=== PATIENT | female | born 1945 | race Caucasian/White ===

== ENCOUNTER 2020-03-25 14:26 | Inpatient (IN) ==
[2020-03-25] MEDS ORDERED: SODIUM CHLORIDE 0.9% 1,000 ML IV STA (14:51)
[2020-03-25] MEDS ORDERED: ONDANSETRON 4 MG/2 ML VIAL IV PRN (14:51)
[2020-03-25 15:47] LABS: Basophils # 0.1 10*3/uL (0.0-0.2); Basophils % 0.2 % (0.0-0.8); Eosinophils # 0.3 10*3/uL (0.0-0.87); Eosinophils % 1.1 % (0.00-10.9); Hematocrit 33.9 VOL% (35.7-47.0); Hemoglobin 10.5 GM/DL (12.0-16.0); Immature Granulocytes % 1.3 %; Immature Granulocytes Absolute 0.39 #; Lymphocytes # 0.9 10*3/uL (1.4-4.0); Lymphocytes % 2.9 % (21.3-54.2); Mean Corpuscular Volume 87.1 FL (87-102); Mean Platelet Volume 9.6 FL (9.6-12.0); Monocytes % 6.5 % (1.7-12.7); Platelet Count 487 T/CUMM (130-400); Red Blood Count 3.89 MC/CUMM (3.8-5.5); Red Cell Distribution Width 15.8 % (9.3-17.3); White Blood Count 29.6 T/CUMM (4-12)
[2020-03-25 16:07] LABS: % Iron Saturation 10.9 % (18-50); Albumin 2.1 G/DL (3.4-5.0); Bilirubin,Total 0.4 MG/DL (0.2-1.0); Calcium 9.5 MG/DL (8.5-10.1); Ferritin 528.3 ng/ml (8-252); Osmolality,Calculated 274.1 MOS/KG (273-304); Total Protein 5.7 G/DL (6.4-8.3)
[2020-03-25 16:08] LABS: Apearance,Urine Slightly Hazy (Clear); Bilirubin,Urine Negative (Negative); Blood, Urine Negative (Negative); Glucose,Urine (UA) Negative (Negative); Ketones,Urine Negative (Negative); Mucus,Urine Occasional /LPF (Occasional); Nitrite,Urine Negative (Negative); Protein,Urine Negative; RBC,Urine 4 /HPF (0-4); Squamous Epithelial Cell,Urine Few /HPF (0-10); Urine Color Yellow (Yellow); Urine Specific Gravity 1.044 (1.001-1.035); Urine Urobilinogen < 2.0 EU/DL (0.2-1.0); WBC,Urine 4 /HPF (0-6)
[2020-03-25 16:12] LABS: Lymphocytes 5 % (20-55); Segmented Neutrophils 92 % (50-85); Total Cells Counted 100
[2020-03-25 16:13] LABS: Burr Cells Slight; Platelet Estimate Increased; Poikilocytosis Slight
[2020-03-25] MEDS ORDERED: DEXTROSE 50% 25 GM/50 ML VIAL IV PRN (17:12)
[2020-03-25] MEDS ORDERED: GLUCAGON 1 MG VIAL IM PRN (17:12)
[2020-03-25] MEDS: INSULIN LISPRO 100 UNIT/ML SUBCUT SCH (21:02)
[2020-03-26 05:15] LABS: Basophils # 0.1 10*3/uL (0.0-0.2); Basophils % 0.3 % (0.0-0.8); Eosinophils # 0.7 10*3/uL (0.0-0.87); Eosinophils % 2.6 % (0.00-10.9); Hematocrit 29.7 VOL% (35.7-47.0); Hemoglobin 9.2 GM/DL (12.0-16.0); Immature Granulocytes % 1.2 %; Immature Granulocytes Absolute 0.33 #; Lymphocytes # 1.3 10*3/uL (1.4-4.0); Mean Corpuscular Volume 86.6 FL (87-102); Mean Platelet Volume 9.9 FL (9.6-12.0); Monocytes % 7.8 % (1.7-12.7); Neutrophils % 83.1 % (38.7-73.9); Platelet Count 463 T/CUMM (130-400); Red Blood Count 3.43 MC/CUMM (3.8-5.5); Red Cell Distribution Width 15.8 % (9.3-17.3); White Blood Count 26.8 T/CUMM (4-12)
[2020-03-26 05:36] LABS: Band Neutrophils 2 % (0-10); Eosinophils 2 % (0-10); Hypochromasia 1+; Lymphocytes 7 % (20-55); Segmented Neutrophils 86 % (50-85); Total Cells Counted 100
[2020-03-26 05:37] LABS: Microcytosis 1+; Ovalocytes Slight; Platelet Estimate Increased
[2020-03-26 05:55] LABS: Albumin 1.8 G/DL (3.4-5.0); Bilirubin,Total 0.4 MG/DL (0.2-1.0); Calcium 8.7 MG/DL (8.5-10.1); Osmolality,Calculated 278.4 MOS/KG (273-304); Total Protein 4.7 G/DL (6.4-8.3)
[2020-03-26 06:37] LABS: Risk Ratio 3.15; VLDL CHOLESTEROL 20.8 MG/DL
[2020-03-26 07:07] LABS: Cancer Antigen 19-9 43.5 U/ML (0-37); Carcinoembryonic Antigen 1.2 NG/ML (0.0-5.0)
[2020-03-26] MEDS: INSULIN LISPRO 100 UNIT/ML SUBCUT SCH ×4 (08:07→21:03)
[2020-03-26] MEDS: amLODIPine 10 MG TABLET PO SCH (10:38)
[2020-03-26] MEDS: lisinopriL 20 MG TABLET PO SCH (10:38)
[2020-03-26] MEDS: METOPROLOL SUCCINATE XL 25 MG TABLET PO SCH (10:38)
[2020-03-26] MEDS: IRON SUCROSE 200 MG in SODIUM CHLORIDE 0.9% 100 ML IV SCH (11:06)
[2020-03-26] MEDS: SIMVASTATIN 10 MG TABLET PO SCH (21:03)
[2020-03-27 05:16] LABS: Basophils # 0.1 10*3/uL (0.0-0.2); Basophils % 0.2 % (0.0-0.8); Eosinophils # 0.7 10*3/uL (0.0-0.87); Eosinophils % 2.6 % (0.00-10.9); Hematocrit 30.7 VOL% (35.7-47.0); Hemoglobin 9.5 GM/DL (12.0-16.0); Immature Granulocytes % 1.3 %; Immature Granulocytes Absolute 0.37 #; Lymphocytes # 1.4 10*3/uL (1.4-4.0); Lymphocytes % 4.8 % (21.3-54.2); Mean Corpuscular HGB Conc 30.9 GM/DL (32-36); Mean Platelet Volume 10.1 FL (9.6-12.0); Monocytes % 7.4 % (1.7-12.7); Neutrophils % 83.7 % (38.7-73.9); Platelet Count 454 T/CUMM (130-400); Red Blood Count 3.49 MC/CUMM (3.8-5.5); Red Cell Distribution Width 15.9 % (9.3-17.3); White Blood Count 28.1 T/CUMM (4-12)
[2020-03-27 05:37] LABS: Albumin 1.7 G/DL (3.4-5.0); Bilirubin,Total 0.7 MG/DL (0.2-1.0); Calcium 8.9 MG/DL (8.5-10.1); Osmolality,Calculated 278.4 MOS/KG (273-304); Total Protein 4.7 G/DL (6.4-8.3)
[2020-03-27 06:11] LABS: Band Neutrophils 3 % (0-10); Eosinophils 2 % (0-10); Lymphocytes 5 % (20-55); Segmented Neutrophils 86 % (50-85); Total Cells Counted 100
[2020-03-27 06:12] LABS: Hypochromasia 1+; Microcytosis 1+; Ovalocytes Slight; Platelet Estimate Increased
[2020-03-27] MEDS ORDERED: MAGNESIUM SULF RIDER 2 GM in PREMIX 1 EACH IV PRN (07:02)
[2020-03-27] MEDS ORDERED: MAGNESIUM SULF RIDER 4 GM in PREMIX 1 EACH IV PRN (07:02)
[2020-03-27] MEDS: INSULIN LISPRO 100 UNIT/ML SUBCUT SCH ×4 (08:16→21:00)
[2020-03-27] MEDS: METOPROLOL SUCCINATE XL 25 MG TABLET PO SCH (09:30)
[2020-03-27] MEDS: amLODIPine 10 MG TABLET PO SCH (09:30)
[2020-03-27] MEDS: lisinopriL 20 MG TABLET PO SCH (09:30)
[2020-03-27] MEDS: IRON SUCROSE 200 MG in SODIUM CHLORIDE 0.9% 100 ML IV SCH (11:42)
[2020-03-27 13:36] LABS: Cancer Antigen 19-9 43.4 U/ML (0-37); Carcinoembryonic Antigen 1.1 NG/ML (0.0-5.0)
[2020-03-27 14:02] LABS: INR 1.3; PT Patient Result 13.5 SECS (9.8-11.9)
[2020-03-27] MEDS: SIMVASTATIN 10 MG TABLET PO SCH (21:00)
[2020-03-28 07:47] LABS: Basophils # 0.1 10*3/uL (0.0-0.2); Basophils % 0.3 % (0.0-0.8); Eosinophils # 0.8 10*3/uL (0.0-0.87); Eosinophils % 2.6 % (0.00-10.9); Hematocrit 30.1 VOL% (35.7-47.0); Hemoglobin 9.5 GM/DL (12.0-16.0); Immature Granulocytes % 1.5 %; Immature Granulocytes Absolute 0.45 #; Lymphocytes # 1.3 10*3/uL (1.4-4.0); Lymphocytes % 4.3 % (21.3-54.2); Mean Corpuscular HGB Conc 31.6 GM/DL (32-36); Mean Platelet Volume 9.7 FL (9.6-12.0); Monocytes % 7.6 % (1.7-12.7); Neutrophils % 83.7 % (38.7-73.9); Platelet Count 408 T/CUMM (130-400); Red Blood Count 3.46 MC/CUMM (3.8-5.5); Red Cell Distribution Width 15.9 % (9.3-17.3); White Blood Count 29.7 T/CUMM (4-12)
[2020-03-28 08:19] LABS: Calcium 8.6 MG/DL (8.5-10.1)
[2020-03-28] MEDS: INSULIN LISPRO 100 UNIT/ML SUBCUT SCH ×4 (08:20→21:21)
[2020-03-28 08:54] LABS: Anisocytosis 1+; Band Neutrophils 3 % (0-10); Eosinophils 2 % (0-10); Hypochromasia 2+; Lymphocytes 1 % (20-55); Macrocytosis 1+; Ovalocytes 1+; Platelet Estimate Increased; Segmented Neutrophils 88 % (50-85); Total Cells Counted 100
[2020-03-28] MEDS: IRON SUCROSE 200 MG in SODIUM CHLORIDE 0.9% 100 ML IV SCH (09:48)
[2020-03-28] MEDS: SIMVASTATIN 10 MG TABLET PO SCH (21:21)
[2020-03-28] MEDS: ACETAMINOPHEN 325 MG TABLET PO PRN (21:21)
[2020-03-29 05:33] LABS: Basophils # 0.1 10*3/uL (0.0-0.2); Basophils % 0.3 % (0.0-0.8); Eosinophils # 0.8 10*3/uL (0.0-0.87); Eosinophils % 2.3 % (0.00-10.9); Hematocrit 29.8 VOL% (35.7-47.0); Hemoglobin 9.1 GM/DL (12.0-16.0); Immature Granulocytes % 1.8 %; Immature Granulocytes Absolute 0.62 #; Lymphocytes # 1.5 10*3/uL (1.4-4.0); Lymphocytes % 4.6 % (21.3-54.2); Mean Corpuscular HGB Conc 30.5 GM/DL (32-36); Mean Corpuscular Volume 88.4 FL (87-102); Mean Platelet Volume 9.7 FL (9.6-12.0); Monocytes % 6.9 % (1.7-12.7); Neutrophils % 84.1 % (38.7-73.9); Platelet Count 398 T/CUMM (130-400); Red Blood Count 3.37 MC/CUMM (3.8-5.5); Red Cell Distribution Width 15.7 % (9.3-17.3); White Blood Count 33.6 T/CUMM (4-12)
[2020-03-29 05:45] LABS: Calcium 8.7 MG/DL (8.5-10.1)
[2020-03-29 06:10] LABS: Band Neutrophils 2 % (0-10); Eosinophils 1 % (0-10); Hypochromasia Slight; Lymphocytes 6 % (20-55); Platelet Estimate Normal; Segmented Neutrophils 87 % (50-85); Total Cells Counted 100
[2020-03-29] MEDS ORDERED: POTASSIUM CHLORIDE 20 MEQ TABLET PO ONE (07:40)
[2020-03-29] MEDS: IRON SUCROSE 200 MG in SODIUM CHLORIDE 0.9% 100 ML IV SCH (09:17)
[2020-03-29] MEDS: INSULIN LISPRO 100 UNIT/ML SUBCUT SCH ×4 (09:18→20:51)
[2020-03-29] MEDS: SIMVASTATIN 10 MG TABLET PO SCH (20:52)
[2020-03-29] MEDS: ACETAMINOPHEN 325 MG TABLET PO PRN (20:52)
[2020-03-30 06:26] LABS: Basophils # 0.1 10*3/uL (0.0-0.2); Basophils % 0.2 % (0.0-0.8); Eosinophils # 0.6 10*3/uL (0.0-0.87); Eosinophils % 1.8 % (0.00-10.9); Hematocrit 29.7 VOL% (35.7-47.0); Hemoglobin 9.3 GM/DL (12.0-16.0); Immature Granulocytes % 2.1 %; Immature Granulocytes Absolute 0.72 #; Lymphocytes # 1.6 10*3/uL (1.4-4.0); Lymphocytes % 4.7 % (21.3-54.2); Mean Corpuscular HGB Conc 31.3 GM/DL (32-36); Mean Corpuscular Volume 86.6 FL (87-102); Monocytes % 6.3 % (1.7-12.7); Neutrophils % 84.9 % (38.7-73.9); Platelet Count 397 T/CUMM (130-400); Red Blood Count 3.43 MC/CUMM (3.8-5.5); Red Cell Distribution Width 15.9 % (9.3-17.3); White Blood Count 33.6 T/CUMM (4-12)
[2020-03-30 06:40] LABS: Calcium 8.4 MG/DL (8.5-10.1); Osmolality,Calculated 281.1 MOS/KG (273-304)
[2020-03-30 08:33] LABS: Anisocytosis 1+; Band Neutrophils 29 % (0-10); Eosinophils 3 % (0-10); Lymphocytes 4 % (20-55); Metamyelocytes 1 %; Platelet Estimate Normal; Segmented Neutrophils 59 % (50-85); Smudge Cells 1+; Total Cells Counted 100
[2020-03-30] MEDS: INSULIN LISPRO 100 UNIT/ML SUBCUT SCH ×4 (09:03→23:44)
[2020-03-30] MEDS: IRON SUCROSE 200 MG in SODIUM CHLORIDE 0.9% 100 ML IV SCH (09:09)
[2020-03-30] MEDS: SIMVASTATIN 10 MG TABLET PO SCH (21:27)
[2020-03-31 06:04] LABS: Basophils # 0.1 10*3/uL (0.0-0.2); Basophils % 0.3 % (0.0-0.8); Eosinophils # 0.7 10*3/uL (0.0-0.87); Hematocrit 28.5 VOL% (35.7-47.0); Hemoglobin 8.9 GM/DL (12.0-16.0); Immature Granulocytes % 1.5 %; Immature Granulocytes Absolute 0.48 #; Lymphocytes # 1.5 10*3/uL (1.4-4.0); Lymphocytes % 4.6 % (21.3-54.2); Mean Corpuscular HGB Conc 31.2 GM/DL (32-36); Mean Corpuscular Volume 86.9 FL (87-102); Mean Platelet Volume 10.4 FL (9.6-12.0); Monocytes % 6.9 % (1.7-12.7); Neutrophils % 84.7 % (38.7-73.9); Platelet Count 425 T/CUMM (130-400); Red Blood Count 3.28 MC/CUMM (3.8-5.5); Red Cell Distribution Width 15.9 % (9.3-17.3)
[2020-03-31 06:27] LABS: Band Neutrophils 6 % (0-10); Eosinophils 2 % (0-10); Hypochromasia 1+; Lymphocytes 3 % (20-55); Segmented Neutrophils 82 % (50-85); Total Cells Counted 100
[2020-03-31 06:28] LABS: Anisocytosis 1+; Ovalocytes Slight; Platelet Estimate Increased
[2020-03-31 06:50] LABS: Calcium 8.6 MG/DL (8.5-10.1); Osmolality,Calculated 275.4 MOS/KG (273-304)
[2020-03-31] MEDS: INSULIN LISPRO 100 UNIT/ML SUBCUT SCH ×4 (07:17→20:37)
[2020-03-31] MEDS ORDERED: SODIUM CHLORIDE 0.45% 1,000 ML IV SCH (12:30)
[2020-03-31] MEDS: SIMVASTATIN 10 MG TABLET PO SCH (20:38)
[2020-04-01 03:10] LABS: Basophils # 0.1 10*3/uL (0.0-0.2); Basophils % 0.2 % (0.0-0.8); Eosinophils # 0.7 10*3/uL (0.0-0.87); Eosinophils % 2.1 % (0.00-10.9); Hematocrit 29.6 VOL% (35.7-47.0); Hemoglobin 9.6 GM/DL (12.0-16.0); Immature Granulocytes % 1.3 %; Immature Granulocytes Absolute 0.45 #; Lymphocytes # 1.6 10*3/uL (1.4-4.0); Lymphocytes % 4.6 % (21.3-54.2); Mean Corpuscular HGB Conc 32.4 GM/DL (32-36); Mean Corpuscular Volume 85.8 FL (87-102); Mean Platelet Volume 9.7 FL (9.6-12.0); Monocytes % 5.9 % (1.7-12.7); Neutrophils % 85.9 % (38.7-73.9); Platelet Count 420 T/CUMM (130-400); Red Blood Count 3.45 MC/CUMM (3.8-5.5); White Blood Count 34.1 T/CUMM (4-12)
[2020-04-01 03:24] LABS: Calcium 8.8 MG/DL (8.5-10.1); Osmolality,Calculated 273.7 MOS/KG (273-304)
[2020-04-01 04:45] LABS: Band Neutrophils 3 % (0-10); Eosinophils 1 % (0-10); Hypochromasia 1+; Lymphocytes 3 % (20-55); Segmented Neutrophils 88 % (50-85); Total Cells Counted 100
[2020-04-01 04:46] LABS: Anisocytosis 1+; Platelet Estimate Increased
[2020-04-01] MEDS: INSULIN LISPRO 100 UNIT/ML SUBCUT SCH ×2 (08:29→11:23)
[2020-04-01 11:34] VITALS: BP 116/66
== END 2020-04-01 12:25 | disposition home health service (06) | DRG 436 ==
LOC: N.ED 14:26 → N.EDINP 14:26 → SUATTDRO 17:10 → N.2E 17:49 → N.3E 03-26 18:39
PROVIDERS: ADMIT Internal Medicine; ATTEND Hospitalist

== ENCOUNTER 2020-04-04 17:17 | Inpatient (IN) ==
[2020-04-04] MEDS ORDERED: ACETAMINOPHEN 500 MG TABLET PO STA (17:57)
[2020-04-04 19:04] LABS: Basophils # 0.1 10*3/uL (0.0-0.2); Basophils % 0.2 % (0.0-0.8); Eosinophils # 0.5 10*3/uL (0.0-0.87); Eosinophils % 1.2 % (0.00-10.9); Hematocrit 33.2 VOL% (35.7-47.0); Hemoglobin 10.1 GM/DL (12.0-16.0); Immature Granulocytes % 1.9 %; Immature Granulocytes Absolute 0.79 #; Lymphocytes % 2.5 % (21.3-54.2); Mean Corpuscular HGB Conc 30.4 GM/DL (32-36); Mean Corpuscular Volume 88.8 FL (87-102); Mean Platelet Volume 10.1 FL (9.6-12.0); Monocytes % 6.3 % (1.7-12.7); Neutrophils % 87.9 % (38.7-73.9); Platelet Count 579 T/CUMM (130-400); Red Blood Count 3.74 MC/CUMM (3.8-5.5); Red Cell Distribution Width 16.6 % (9.3-17.3)
[2020-04-04 19:06] LABS: White Blood Count 41.7 T/CUMM (4-12)
[2020-04-04 19:12] LABS: INR 1.2; PT Patient Result 12.4 SECS (9.8-11.9)
[2020-04-04 19:24] LABS: Anisocytosis 1+; Band Neutrophils 6 % (0-10); Eosinophils 2 % (0-10); Lymphocytes 3 % (20-55); Macrocytosis Slight; Microcytosis 1+; Platelet Estimate Increased; Polychromasia Slight; Segmented Neutrophils 87 % (50-85); Total Cells Counted 100
[2020-04-04 19:25] LABS: Alanine Aminotransferase 29 U/L (13-56); Alkaline Phosphatase 335 U/L (45-117); Aspartate Amino Transferase 15 U/L (0-37); Bilirubin,Total < 0.39 MG/DL (0.2-1.0); Blood Urea Nitrogen 22 MG/DL (7-18); Calcium 8.9 MG/DL (8.5-10.1); Estimated Glom Filtration Rate 66 ML/MIN; Ferritin 1215.3 ng/ml (8-252); Glucose 105 MG/DL (74-106); Osmolality,Calculated 270.2 MOS/KG (273-304); Total Protein 5.7 G/DL (6.4-8.3)
[2020-04-04] MEDS ORDERED: SODIUM CHLORIDE 0.9% 1,000 ML IV STA (19:30)
[2020-04-04 19:43] LABS: Apearance,Urine CLEAR (Clear); Bilirubin,Urine Negative (Negative); Blood, Urine Negative (Negative); Glucose,Urine (UA) Negative (Negative); Ketones,Urine Negative (Negative); Mucus,Urine Occasional /LPF (Occasional); Nitrite,Urine Negative (Negative); Protein,Urine 30 MG/DL; RBC,Urine <1 /HPF (0-4); Urine Color Yellow (Yellow); Urine Specific Gravity 1.017 (1.001-1.035); WBC,Urine 1 /HPF (0-6)
[2020-04-04] MEDS ORDERED: CEFEPIME 1,000 MG in SODIUM CHLORIDE 0.9% 100 ML IV STA (19:58)
[2020-04-04] MEDS ORDERED: IBUPROFEN 600 MG TABLET ONE (20:07)
[2020-04-04] MEDS ORDERED: VANCOMYCIN INJ 1,000 MG in SODIUM CHLORIDE 0.9% 250 ML IV STA (20:14)
[2020-04-04] MEDS ORDERED: ZALEPLON 5 MG CAPSULE PO PRN (20:43)
[2020-04-04] MEDS ORDERED: DEXTROSE 50% 25 GM/50 ML VIAL IV PRN ×2 (20:43)
[2020-04-04] MEDS ORDERED: MORPHINE 4 MG/1 ML VIAL IV PRN (20:43)
[2020-04-04] MEDS ORDERED: ACETAMINOPHEN 325 MG TABLET PO PRN (20:43)
[2020-04-04] MEDS ORDERED: GLUCAGON 1 MG VIAL IM PRN ×2 (20:43)
[2020-04-04] MEDS ORDERED: NICOTINE 21 MG/24 HR PATCH TRANSDERM PRN (20:43)
[2020-04-04] MEDS ORDERED: diphenhydrAMINE CAP 25 MG CAPSULE PO PRN (20:43)
[2020-04-04] MEDS ORDERED: ONDANSETRON 4 MG/2 ML VIAL IV PRN (20:43)
[2020-04-04] MEDS ORDERED: guaiFENesin/DM ER 600-30 MG TABLET PO PRN (20:43)
[2020-04-04] MEDS ORDERED: PROMETHAZINE 25 MG/1 ML VIAL IM PRN (20:43)
[2020-04-04] MEDS ORDERED: hydrALAZINE 20 MG/1 ML VIAL IV PRN (20:43)
[2020-04-04] MEDS ORDERED: SODIUM CHLORIDE 0.9% 500 ML IV ONE (20:50)
[2020-04-04] MEDS: DOCUSATE SODIUM 100 MG CAPSULE PO SCH (22:30)
[2020-04-04] MEDS: ENOXAPARIN 40 MG/0.4 ML SYRINGE SUBCUT SCH (22:30)
[2020-04-04] MEDS: SODIUM CHLORIDE 0.9% 1,000 ML IV SCH (22:35)
[2020-04-04] MEDS: INSULIN LISPRO 100 UNIT/ML SUBCUT SCH (22:55)
[2020-04-05] MEDS: MEROPENEM 500 MG in SODIUM CHLORIDE 0.9% 100 ML IV SCH ×5 (00:38→23:00)
[2020-04-05 07:55] LABS: Basophils # 0.1 10*3/uL (0.0-0.2); Basophils % 0.3 % (0.0-0.8); Eosinophils # 0.7 10*3/uL (0.0-0.87); Eosinophils % 2.3 % (0.00-10.9); Hematocrit 28.6 VOL% (35.7-47.0); Hemoglobin 8.9 GM/DL (12.0-16.0); Immature Granulocytes % 1.6 %; Lymphocytes # 1.4 10*3/uL (1.4-4.0); Lymphocytes % 4.7 % (21.3-54.2); Mean Corpuscular HGB Conc 31.1 GM/DL (32-36); Mean Corpuscular Volume 88.3 FL (87-102); Mean Platelet Volume 10.4 FL (9.6-12.0); Monocytes % 6.2 % (1.7-12.7); Neutrophils % 84.9 % (38.7-73.9); Platelet Count 441 T/CUMM (130-400); Red Blood Count 3.24 MC/CUMM (3.8-5.5); Red Cell Distribution Width 16.9 % (9.3-17.3); White Blood Count 30.8 T/CUMM (4-12)
[2020-04-05] MEDS: INSULIN LISPRO 100 UNIT/ML SUBCUT SCH ×4 (08:04→22:11)
[2020-04-05 08:20] LABS: Band Neutrophils 4 % (0-10); Eosinophils 1 % (0-10); Hypochromasia 1+; Lymphocytes 1 % (20-55); Microcytosis 1+; Ovalocytes Few; Segmented Neutrophils 88 % (50-85); Total Cells Counted 100
[2020-04-05 08:21] LABS: Anisocytosis 1+
[2020-04-05 08:28] LABS: Calcium 8.4 MG/DL (8.5-10.1); Osmolality,Calculated 276.5 MOS/KG (273-304)
[2020-04-05] MEDS: VANCOMYCIN INJ 750 MG in SODIUM CHLORIDE 0.9% 250 ML IV SCH ×2 (09:24→22:00)
[2020-04-05] MEDS: PANTOPRAZOLE 40 MG TABLET PO SCH (09:24)
[2020-04-05] MEDS: SODIUM CHLORIDE 0.9% 1,000 ML IV SCH ×2 (09:31→22:00)
[2020-04-05] MEDS: DOCUSATE SODIUM 100 MG CAPSULE PO SCH ×2 (09:31→21:57)
[2020-04-05] MEDS: CHOLESTYRAMINE 4 GM PACK PO SCH (16:25)
[2020-04-05] MEDS: BENZONATATE 100 MG CAPSULE PO SCH (22:03)
[2020-04-05] MEDS: ENOXAPARIN 40 MG/0.4 ML SYRINGE SUBCUT SCH (22:03)
[2020-04-06] MEDS: MEROPENEM 500 MG in SODIUM CHLORIDE 0.9% 100 ML IV SCH ×4 (04:42→21:35)
[2020-04-06 05:37] LABS: Basophils # 0.1 10*3/uL (0.0-0.2); Basophils % 0.3 % (0.0-0.8); Eosinophils # 0.9 10*3/uL (0.0-0.87); Eosinophils % 2.7 % (0.00-10.9); Hemoglobin 9.2 GM/DL (12.0-16.0); Immature Granulocytes % 1.7 %; Immature Granulocytes Absolute 0.57 #; Lymphocytes # 0.5 10*3/uL (1.4-4.0); Lymphocytes % 1.4 % (21.3-54.2); Mean Corpuscular HGB Conc 30.7 GM/DL (32-36); Neutrophils % 88.9 % (38.7-73.9); Platelet Count 422 T/CUMM (130-400); Red Blood Count 3.41 MC/CUMM (3.8-5.5); White Blood Count 32.8 T/CUMM (4-12)
[2020-04-06 05:56] LABS: Calcium 8.7 MG/DL (8.5-10.1); Osmolality,Calculated 275.5 MOS/KG (273-304)
[2020-04-06] MEDS: INSULIN LISPRO 100 UNIT/ML SUBCUT SCH ×4 (07:38→21:46)
[2020-04-06 08:55] LABS: Band Neutrophils 1 % (0-10); Eosinophils 1 % (0-10); Hypochromasia Slight; Lymphocytes 2 % (20-55); Platelet Estimate Increased; Segmented Neutrophils 92 % (50-85); Total Cells Counted 100
[2020-04-06] MEDS: amLODIPine 10 MG TABLET PO SCH (09:34)
[2020-04-06] MEDS: BENZONATATE 100 MG CAPSULE PO SCH ×3 (09:34→20:32)
[2020-04-06] MEDS: PANTOPRAZOLE 40 MG TABLET PO SCH (09:34)
[2020-04-06] MEDS: CHOLESTYRAMINE 4 GM PACK PO SCH (09:34)
[2020-04-06] MEDS: DOCUSATE SODIUM 100 MG CAPSULE PO SCH ×2 (09:34→20:32)
[2020-04-06] MEDS: VANCOMYCIN INJ 750 MG in SODIUM CHLORIDE 0.9% 250 ML IV SCH ×3 (09:35→21:25)
[2020-04-06] MEDS: SODIUM CHLORIDE 0.9% 1,000 ML IV SCH (09:51)
[2020-04-06] MEDS: SIMVASTATIN 10 MG TABLET PO SCH (20:32)
[2020-04-06] MEDS: ENOXAPARIN 40 MG/0.4 ML SYRINGE SUBCUT SCH (20:46)
[2020-04-06] MEDS ORDERED: diphenhydrAMINE 50 MG/1 ML VIAL IV ONE (21:15)
[2020-04-07] MEDS: SODIUM CHLORIDE 0.9% 1,000 ML IV SCH ×2 (03:19→18:34)
[2020-04-07] MEDS: MEROPENEM 500 MG in SODIUM CHLORIDE 0.9% 100 ML IV SCH ×4 (05:29→21:08)
[2020-04-07 05:52] LABS: Basophils # 0.1 10*3/uL (0.0-0.2); Basophils % 0.2 % (0.0-0.8); Eosinophils # 0.9 10*3/uL (0.0-0.87); Eosinophils % 2.4 % (0.00-10.9); Hematocrit 30.1 VOL% (35.7-47.0); Hemoglobin 9.3 GM/DL (12.0-16.0); Immature Granulocytes % 1.8 %; Lymphocytes # 0.9 10*3/uL (1.4-4.0); Lymphocytes % 2.4 % (21.3-54.2); Mean Corpuscular HGB Conc 30.9 GM/DL (32-36); Mean Corpuscular Volume 89.6 FL (87-102); Mean Platelet Volume 10.4 FL (9.6-12.0); Monocytes % 3.9 % (1.7-12.7); Neutrophils % 89.3 % (38.7-73.9); Platelet Count 492 T/CUMM (130-400); Red Blood Count 3.36 MC/CUMM (3.8-5.5); Red Cell Distribution Width 17.2 % (9.3-17.3); White Blood Count 38.4 T/CUMM (4-12)
[2020-04-07 06:18] LABS: Calcium 8.9 MG/DL (8.5-10.1); Osmolality,Calculated 277.3 MOS/KG (273-304)
[2020-04-07 06:35] LABS: Band Neutrophils 5 % (0-10); Hypochromasia 1+; Lymphocytes 1 % (20-55); Segmented Neutrophils 91 % (50-85); Total Cells Counted 100
[2020-04-07 06:36] LABS: Burr Cells Slight; Microcytosis 1+
[2020-04-07 06:37] LABS: Platelet Estimate Increased; Polychromasia Slight
[2020-04-07] MEDS: INSULIN LISPRO 100 UNIT/ML SUBCUT SCH ×4 (08:16→21:05)
[2020-04-07] MEDS: CHOLESTYRAMINE 4 GM PACK PO SCH (08:50)
[2020-04-07] MEDS: BENZONATATE 100 MG CAPSULE PO SCH ×3 (08:50→21:09)
[2020-04-07] MEDS: amLODIPine 10 MG TABLET PO SCH (08:50)
[2020-04-07] MEDS: PANTOPRAZOLE 40 MG TABLET PO SCH (08:51)
[2020-04-07] MEDS: DOCUSATE SODIUM 100 MG CAPSULE PO SCH ×2 (08:51→21:09)
[2020-04-07] MEDS: VANCOMYCIN INJ 750 MG in SODIUM CHLORIDE 0.9% 250 ML IV SCH ×2 (09:09→21:05)
[2020-04-07] MEDS: ENOXAPARIN 40 MG/0.4 ML SYRINGE SUBCUT SCH (21:09)
[2020-04-07] MEDS: SIMVASTATIN 10 MG TABLET PO SCH (21:09)
[2020-04-08] MEDS: MEROPENEM 500 MG in SODIUM CHLORIDE 0.9% 100 ML IV SCH ×2 (03:16→09:57)
[2020-04-08 05:30] LABS: Basophils % 0.1 % (0.0-0.8); Eosinophils # 1.1 10*3/uL (0.0-0.87); Eosinophils % 2.5 % (0.00-10.9); Hematocrit 32.4 VOL% (35.7-47.0); Immature Granulocytes % 2.1 %; Immature Granulocytes Absolute 0.92 #; Lymphocytes % 2.3 % (21.3-54.2); Mean Corpuscular HGB Conc 30.9 GM/DL (32-36); Mean Corpuscular Volume 88.3 FL (87-102); Monocytes % 2.8 % (1.7-12.7); Neutrophils % 90.2 % (38.7-73.9); Platelet Count 455 T/CUMM (130-400); Red Blood Count 3.67 MC/CUMM (3.8-5.5); Red Cell Distribution Width 17.2 % (9.3-17.3)
[2020-04-08 05:32] LABS: White Blood Count 43.6 T/CUMM (4-12)
[2020-04-08 05:47] LABS: Osmolality,Calculated 276.5 MOS/KG (273-304)
[2020-04-08 05:49] LABS: Acanthocytes Few; Band Neutrophils 4 % (0-10); Hypochromasia 1+; Lymphocytes 1 % (20-55); Microcytosis 1+; Ovalocytes Slight; Segmented Neutrophils 91 % (50-85); Total Cells Counted 100
[2020-04-08 05:50] LABS: Platelet Estimate Increased
[2020-04-08] MEDS: SODIUM CHLORIDE 0.9% 1,000 ML IV SCH (06:58)
[2020-04-08] MEDS: INSULIN LISPRO 100 UNIT/ML SUBCUT SCH ×2 (09:14→12:12)
[2020-04-08] MEDS: CHOLESTYRAMINE 4 GM PACK PO SCH (09:16)
[2020-04-08] MEDS: BENZONATATE 100 MG CAPSULE PO SCH (09:16)
[2020-04-08] MEDS: PANTOPRAZOLE 40 MG TABLET PO SCH (09:16)
[2020-04-08] MEDS: amLODIPine 10 MG TABLET PO SCH (09:16)
[2020-04-08] MEDS: DOCUSATE SODIUM 100 MG CAPSULE PO SCH (09:16)
[2020-04-08] MEDS: VANCOMYCIN INJ 750 MG in SODIUM CHLORIDE 0.9% 250 ML IV SCH (09:56)
[2020-04-08 12:08] VITALS: BP 109/65
== END 2020-04-08 15:06 | disposition hospice, home (50) | DRG 436 ==
LOC: EDUNIT# → EDBD → N.ED 17:17 → SUATTDRO 20:43 → N.EDINP 20:43 → N.2E 21:13 → N.TELEN 04-06 07:58
PROVIDERS: ADMIT Hospitalist; ATTEND Internal Medicine